=== PATIENT | female | born 1980 | race Caucasian/White ===

== ENCOUNTER 2017-04-18 04:09 | Emergency (ER) | payer OTHER ==
[~2017-04-18] VITALS: Ht 170.2 cm; Wt 68.0 kg
[~2017-04-18 04:09] MED LIST: CELEXA20 MG PO; CIPRO500 MG PO; HYDROCODONE-APA1 TA1 PO; IMURAN 50MG TAB50 M1 PO; SINGULAIR 4 MG C4 M1 PO; STELARA45 MG/0.1 SQ; ZOFRAN ODT4 MG DISSOLVE
== END 2017-04-18 05:02 | disposition home or self-care (01) ==
LOC: ER 04:09
DX: S01.81XA Laceration without foreign body of other part of head, initial encounter (principal); F17.210 Nicotine dependence, cigarettes, uncomplicated; K50.90 Crohn's disease, unspecified, without complications; J45.909 Unspecified asthma, uncomplicated; Y04.2XXA Assault by strike against or bumped into by another person, initial encounter; Y93.89 Activity, other specified; Y92.89 Other specified places as the place of occurrence of the external cause; Y99.8 Other external cause status